=== PATIENT | female | born 1990 ===

== ENCOUNTER 2023-09-12 12:18 | Outpatient (CLI) | payer BC ==
[2023-09-12] VITALS (7 sets, daily range): BP systolic 104–167; BP diastolic 71–83; PULSE 86–104; TEMP 98.4
[~2023-09-12] VITALS: Ht 170.2 cm; Wt 227.2 kg
[~2023-09-12 12:18] MED LIST: NORVASC 5MG5 MG/TAB PO; ZYRTEC 10MG10 MG PO
[2023-09-12] MEDS ORDERED: NEURONTIN300 MG/CAP PO ×2 (12:28→12:29)
[2023-09-12] MEDS ORDERED: CYMBALTA 20MG20 MG PO (12:29)
[2023-09-12] MEDS ORDERED: ZEPBOUND5 MG/0.5 M SQ (12:30)
[2023-09-12] MEDS ORDERED: SYNTHROID 0.0.025 MG PO (12:31)
[2023-09-12] MEDS ORDERED: B-121000 MCG PO (12:32)
[2023-09-12] MEDS ORDERED: FLOVENT 220MCG7.9 GM IH (12:32)
[2023-09-12] MEDS ORDERED: VENTOLIN0.09 MG IH (12:33)
[2023-09-12] MEDS ORDERED: ZYRTEC 10MG10 MG PO (12:33)
[2023-09-12] MEDS ORDERED: NORVASC 5MG5 MG/TAB PO (12:34)
[2023-09-12 15:08] LABS: TOTAL PROTEIN,CSF 19 mg/dL (15-45)
--- NOTE | 2023-09-12 15:18 | NUR ---
DC instructions reviewed with pt and . Both express understanding. Pt has rested comfortably following procedure. No c/o headache or other concerns. She's tolerated water, and has denied desire for food. She is assisted up to sitting position following 1 hr bedrest period. Bandaid remains clean, dry and intact. She is able to transfer self from bed to wheelchair. She is assisted out to 's truck by wheelchair with belongings.
[2023-09-12 15:58] LABS: CSF APPEARANCE CLEAR; CSF COLOR COLORLESS; CSF RBC 12 /mm3 (0-0)
[2023-09-12 16:33] LABS: CSF MONONUCLEAR 100 % (70-100); CSF POLYMORPHONUCLEAR 0 % (0-6)
== END 2023-09-12 15:18 | disposition home or self-care (01) ==
LOC: COL.RAD 12:18
PROVIDERS: Pediatrics
DX: G44.52 New daily persistent headache (NDPH) (principal)